=== PATIENT | male | born 1965 | race Caucasian/White ===

== ENCOUNTER 2022-12-18 10:45 | Emergency (ER) | payer OTHER, MEDICARE ==
[~2022-12-18] VITALS: Ht 167.6 cm; Wt 90.0 kg
[2022-12-18] VITALS (13 sets, daily range): BP systolic 86–142; BP diastolic 44–107
[2022-12-18 12:20] LABS: BASO% 0.5 % (0-3); EOS% 2.3 % (0-8); HEMOGLOBIN 16.1 g/dl (14.0-18.0); IMMATURE GRANULOCYTES 0.2 % (0.0-5.0); LYMPH% 26.9 % (15-41); MEAN CELL VOLUME 92.3 fL CALC (80.0-100.0); MEAN CORPUSCULAR HGB CONC 33.5 g/dL CAL (32.0-36.0); MONO% 9.5 % (2-13); NEUT# 3.44 thou/uL (1.82-7.42); NEUT% 60.6 % (42-76); RED BLOOD COUNT 5.2 mill/uL (4.70-6.10); RED CELL DISTRI WIDTH 12.4 % (11.5-15.5)
[2022-12-18 13:10] LABS: ALBUMIN 5.2 g/dL (3.2-5.0); ALKALINE PHOSPHATASE 44 u/l (38-126); ANION GAP 19 (6-22 (CALC)); BILIRUBIN, TOTAL 0.7 mg/dL (0.2-1.3); BUN 17 mg/dL (9-20); BUN/CREATININE RATIO 25 (12-20 (CALC)); CARBON DIOXIDE 21 mmol/l (22-30); CHLORIDE 105 mmol/l (95-108); CREATININE 0.7 mg/dL (0.7-1.3); GFR FOR AFR.AMER. > 60 ML/MIN (>=60 (CALC)); GFR OTHER RACES > 60 ML/MIN (>=60 (CALC)); LIPASE 200 u/l (23-300); SGOT/AST 37 u/l (17-59); SODIUM 140 mmol/l (137-146); TOTAL PROTEIN 8.9 g/dL (6.3-8.2)
[2022-12-18 14:25] LABS: URINE BILIRUBIN - DIPSTICK NEGATIVE (NEGATIVE); URINE BLOOD DIPSTICK NEGATIVE (NEGATIVE); URINE COLOR YELLOW; URINE GLUCOSE - DIPSTICK >=1000 mg/dL (NEGATIVE); URINE KETONE NEGATIVE (NEGATIVE); URINE LEUK ESTERASE NEGATIVE (NEGATIVE); URINE PROTEIN - DIPSTICK NEGATIVE (NEG-TRACE); URINE UROBILINOGEN - DIPSTICK 0.2 E.U./dL (0.2)
[2022-12-18 14:33] LABS: URINE NITRITE - DIPSTICK NEGATIVE (Negative)
[2022-12-18] MEDS ORDERED: DICYCLOMINE10 MG PO (16:08)
[2022-12-18] MEDS ORDERED: PEPCID20 MG PO (16:08)
[2022-12-18] MEDS ORDERED: HYDROCO/APAP1 TA9 PO ×2 (16:08→16:10)
[2022-12-18] MEDS ORDERED: REGLAN10 MG PO (16:08)
== END 2022-12-18 16:22 | disposition home or self-care (01) | DRG 392 ==
LOC: ED 10:45
PROVIDERS: Nurse Practitioner
DX: R10.9 Unspecified abdominal pain (principal); R19.7 Diarrhea, unspecified; E11.9 Type 2 diabetes mellitus without complications; Z79.84 Long term (current) use of oral hypoglycemic drugs; I10 Essential (primary) hypertension; Z95.5 Presence of coronary angioplasty implant and graft; Z86.73 Personal history of transient ischemic attack (TIA), and cerebral infarction without residual deficits
CPT/HCPCS: Q9967; S0164